=== PATIENT | male | born 1995 | race African-American/Black ===

== ENCOUNTER 2021-04-08 00:48 | Emergency (ER) | payer OTHER ==
[~2021-04-08] VITALS: Ht 188 cm; Wt 83.9 kg
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
--- NOTE | 2021-04-08 00:58 | NUR ---
Dr Gorman at bedside for MSE.
[2021-04-08] MEDS ORDERED: LIDOCAINE HCL 1% 20 ML VIAL IJ ONE (01:00)
[2021-04-08] MEDS ORDERED: TDAP DIPH,PERTUSS,TET VAC/PF 0.5 ML DISP.SYRIN IM ONE ×2 (01:00→01:29)
--- NOTE | 2021-04-08 02:46 | NUR ---
pt refused to get stitches for his laceration on his left thumb. pt refused Tetanus vaccine. ER MD aware. placed pressure dressing on laceration.
[2021-04-08] MEDS ORDERED: SULF1TAB48 PO (02:48)
--- NOTE | 2021-04-08 03:05 | NUR ---
Patient discharged to [employer] in stable condition. Written and verbal after care instructions given to pt and [employer], verbalizes understanding of instructions. Stressed follow up or return to ER for worsening s/s. pt ambulated wiht steady gait. denies pain.
[2021-04-08 03:07] VITALS: BP 119/74
== END 2021-04-08 03:08 | disposition home or self-care (01) ==
LOC: ER 00:55
DX: S61.012A Laceration without foreign body of left thumb without damage to nail, initial encounter (principal); Y09 Assault by unspecified means; Y92.89 Other specified places as the place of occurrence of the external cause; F17.210 Nicotine dependence, cigarettes, uncomplicated; Z59.00 Homelessness unspecified; F31.9 Bipolar disorder, unspecified; F20.9 Schizophrenia, unspecified; Z53.20 Procedure and treatment not carried out because of patient's decision for unspecified reasons
CPT/HCPCS: 90715; A4217; A4663; J3490